=== PATIENT | male | born 1990 | race African-American/Black ===

== ENCOUNTER 2018-01-06 11:03 | Emergency (ER) | payer SELFPAY ==
[2018-01-06] MEDS ORDERED: Ibuprofen 200 MG TAB ONE ×2 (12:16→12:18)
--- NOTE | 2018-01-06 13:31 | RAD ---
RIGHT ANKLE THREE VIEWS: History: Right ankle injury. FINDINGS: Ankle mortise is intact. Talar dome maintained. No acute fracture, dislocation, or aggressive osseous erosions. IMPRESSION: No acute osseous abnormalities are demonstrated. POS: [facility]
== END 2018-01-06 13:36 | disposition home or self-care (01) ==
LOC: ERS 11:03
DX: S93.401A Sprain of unspecified ligament of right ankle, initial encounter (principal); X58.XXXA Exposure to other specified factors, initial encounter